=== PATIENT | male | born 1960 | race Caucasian/White ===

== ENCOUNTER 2017-09-21 12:33 | Inpatient (IN) | payer OTHER ==
[~2017-09-21] VITALS: Ht 170.2 cm; Wt 79.4 kg
[2017-09-21] MEDS ORDERED: NACL 0.9% 1,000 ML IV ONE (13:02)
[2017-09-21] MEDS ORDERED: CLOP75TA2 PO (13:12)
[2017-09-21] MEDS ORDERED: LISI-600 PO (13:12)
[2017-09-21] MEDS ORDERED: ASPI-859 PO (13:13)
[2017-09-21] MEDS ORDERED: ASPIRIN 81 MG TAB.CHEW PO ONE (13:15)
[2017-09-21 13:38] LABS: BASOPHILS # (AUTO) 0.1 K/uL (0.0-0.2); BASOPHILS % (AUTO) 0.9 % (0.0-2.0); EOSINOPHILS # (AUTO) 0.7 K/uL (0.0-0.4); EOSINOPHILS % (AUTO) 7.5 % (0.0-4.0); HEMATOCRIT 40.8 % (36-54); HEMOGLOBIN 13.6 g/dL (14.0-18.0); LYMPHOCYTES # (AUTO) 1.7 K/uL (1.0-5.5); LYMPHOCYTES % (AUTO) 17.9 % (20.5-51.5); MEAN CORPUSCULAR HEMOGLOBIN 30 pg (27-31); MEAN CORPUSCULAR HGB CONC 33 % (32-36); MEAN CORPUSCULAR VOLUME 89 fL (79.0-98.0); MONOCYTES # (AUTO) 0.3 K/uL (0.0-1.0); MONOCYTES % (AUTO) 3.7 % (1.7-9.3); NEUTROPHILS # (AUTO) 6.5 K/uL (1.8-7.7); PLATELET COUNT (AUTO) 239 K/uL (130-430); RED BLOOD CELL COUNT(AUTO) 4.58 MIL/uL (4.2-6.2); RED CELL DISTRIBUTION WIDTH 13.1 % (9.0-15.0); WHITE BLOOD COUNT (AUTO) 9.3 K/uL (4.8-10.8)
[2017-09-21 13:54] LABS: ANION GAP 9 (5-15); CALCIUM 9.7 mg/dL (8.4-11.0); CHLORIDE 103 mmol/L (98-107); CREATININE 1.98 mg/dL (0.55-1.30); GLUCOSE 155 mg/dL (70-99); POTASSIUM 4.3 mmol/L (3.5-5.1); SODIUM SERUM 139 mmol/L (136-145); UREA NITROGEN, BLOOD 34 mg/dL (8-21)
[2017-09-21 13:59] LABS: PROTHROMBIN TIME 9.7 SECS (9.5-12.5)
[2017-09-21 14:00] LABS: GFR AFRICAN AMERICAN 45 mL/min (>90)
[2017-09-21] MEDS ORDERED: METOPROLOL TARTRATE 25 MG TABLET PO ONE (14:00)
[2017-09-21 14:03] LABS: ALANINE AMINOTRANSFERASE 39 U/L (12-78); ALBUMIN 3.2 g/dL (3.4-4.8); ASPARTATE AMINOTRANSFERASE 28 U/L (10-37); TOTAL BILIRUBIN 0.4 mg/dL (0.0-1.0)
[2017-09-21] MEDS ORDERED: cloNIDine HCL 0.1 MG TABLET PO ONE (14:30)
[2017-09-21] MEDS ORDERED: LIP80 PO (15:58)
[2017-09-21] MEDS ORDERED: HYDR-1189 PO (15:58)
[2017-09-21] MEDS ORDERED: GLUXR500 PO (15:58)
[2017-09-21] MEDS ORDERED: CARV6.2554 PO (15:58)
[2017-09-21 17:53] VITALS: BP_SYST 147
[2017-09-21] MEDS ORDERED: DEXTROSE 50% JECT 50 ML DISP.SYRIN IVP PRN (20:15)
[2017-09-21] MEDS: CARVEDILOL 6.25 MG TABLET (COREG) PO SCH (21:31)
[2017-09-21 21:54] VITALS: BP_SYST 180
[2017-09-21] MEDS ORDERED: amLODIPine BESYLATE 5 MG TABLET PO SCH (22:30)
[2017-09-21] MEDS: INSULIN REGULAR, HUMAN 100 UNITS/ML, 10 ML VIAL (novoLIN R) SUBCUT PRN (23:58)
[2017-09-22] VITALS: BP_SYST 127
[2017-09-22 00:36] VITALS: BP_SYST 161
[2017-09-22 04:30] VITALS: BP_SYST 161
[2017-09-22 06:53] LABS: BASOPHILS # (AUTO) 0.1 K/uL (0.0-0.2); BASOPHILS % (AUTO) 1.1 % (0.0-2.0); EOSINOPHILS # (AUTO) 0.6 K/uL (0.0-0.4); EOSINOPHILS % (AUTO) 6.8 % (0.0-4.0); HEMATOCRIT 35.8 % (36-54); HEMOGLOBIN 12.2 g/dL (14.0-18.0); LYMPHOCYTES # (AUTO) 2.3 K/uL (1.0-5.5); LYMPHOCYTES % (AUTO) 26.8 % (20.5-51.5); MEAN CORPUSCULAR HEMOGLOBIN 31 pg (27-31); MEAN CORPUSCULAR HGB CONC 34 % (32-36); MEAN CORPUSCULAR VOLUME 90 fL (79.0-98.0); MONOCYTES # (AUTO) 0.5 K/uL (0.0-1.0); MONOCYTES % (AUTO) 6.3 % (1.7-9.3); NEUTROPHILS # (AUTO) 5.2 K/uL (1.8-7.7); PLATELET COUNT (AUTO) 194 K/uL (130-430); RED BLOOD CELL COUNT(AUTO) 3.98 MIL/uL (4.2-6.2); RED CELL DISTRIBUTION WIDTH 13.3 % (9.0-15.0); WHITE BLOOD COUNT (AUTO) 8.7 K/uL (4.8-10.8)
[2017-09-22 07:03] LABS: ANION GAP 7 (5-15); CALCIUM 8.6 mg/dL (8.4-11.0); CHLORIDE 106 mmol/L (98-107); CREATININE 1.87 mg/dL (0.55-1.30); GLUCOSE 165 mg/dL (70-99); POTASSIUM 4.3 mmol/L (3.5-5.1); SODIUM SERUM 141 mmol/L (136-145); UREA NITROGEN, BLOOD 28 mg/dL (8-21)
[2017-09-22 07:12] LABS: GFR AFRICAN AMERICAN 48 mL/min (>90)
[2017-09-22 07:17] LABS: ALANINE AMINOTRANSFERASE 29 U/L (12-78); ALBUMIN 2.4 g/dL (3.4-4.8); ASPARTATE AMINOTRANSFERASE 21 U/L (10-37); THYROID STIMULATING HORMONE 2.58 uIu/mL (0.36-3.74); TOTAL BILIRUBIN 0.2 mg/dL (0.0-1.0)
[2017-09-22 07:24] LABS: CHOLESTEROL 133 mg/dL (<200); HDL CHOLESTEROL 44 mg/dL (>45); LDL CHOLESTEROL 68 mg/dL (<100); TRIGLYCERIDES 142 mg/dL (30-150)
[2017-09-22] MEDS: CARVEDILOL 6.25 MG TABLET (COREG) PO SCH (08:20)
[2017-09-22] MEDS ORDERED: ATORVASTATIN 20 MG TABLET PO SCH (09:00)
[2017-09-22] MEDS ORDERED: ASPIRIN 81 MG TABLET(ECOTRIN) PO SCH (09:00)
[2017-09-22] MEDS ORDERED: CLOPIDOGREL BISULFATE 75 MG TABLET PO SCH (09:00)
[2017-09-22] MEDS ORDERED: amLODIPine BESYLATE 5 MG TABLET PO SCH (09:00)
[2017-09-22] MEDS ORDERED: LISINOPRIL 20 MG TABLET PO SCH (09:00)
[2017-09-22] MEDS: INSULIN REGULAR, HUMAN 100 UNITS/ML, 10 ML VIAL (novoLIN R) SUBCUT PRN (11:17)
[2017-09-22 12:27] VITALS: BP_SYST 142
[2017-09-22 16:00] VITALS: BP_SYST 124
[2017-09-22 18:00] VITALS: BP_SYST 124
== END 2017-09-22 18:24 | disposition short-term general hospital (02) | DRG 303 ==
LOC: SED 12:33 → STU 17:40
PROVIDERS: ADMIT Internal Medicine Hospice and Palliative Medicine; ATTEND Internal Medicine Hospice and Palliative Medicine
DX: I25.119 Atherosclerotic heart disease of native coronary artery with unspecified angina pectoris (principal); E11.22 Type 2 diabetes mellitus with diabetic chronic kidney disease; E11.51 Type 2 diabetes mellitus with diabetic peripheral angiopathy without gangrene; N18.4 Chronic kidney disease, stage 4 (severe); I25.10 Atherosclerotic heart disease of native coronary artery without angina pectoris; E78.5 Hyperlipidemia, unspecified; I12.9 Hypertensive chronic kidney disease with stage 1 through stage 4 chronic kidney disease, or unspecified chronic kidney disease; I25.2 Old myocardial infarction; Z79.4 Long term (current) use of insulin; Z83.3 Family history of diabetes mellitus; Z95.1 Presence of aortocoronary bypass graft; Z95.5 Presence of coronary angioplasty implant and graft; Z79.899 Other long term (current) drug therapy; Z79.82 Long term (current) use of aspirin
CPT/HCPCS: 36415; 71045; 80053; 80061; 82962; 83880; 84443-TC; 84484; 85025; 85610-TC; 85730-TC; 93005; 96360; 99285; J1815